=== PATIENT | female | born 1935 | race Two or more races ===

== ENCOUNTER 2017-08-28 11:56 | Inpatient (IN) | payer OTHER ==
[~2017-08-28] VITALS: Ht 149.9 cm; Wt 54.4 kg
[~2017-08-28 11:56] MED LIST: PREDNISONE5 MG/DOSE- PO; TRAMADOL HCL50 MG PO
[2017-09-25] MEDS ORDERED: CLOPIDOGREL BIS75 MG PO (09:10)
[2017-09-25] MEDS ORDERED: ISOSORBIDE DINI30 MG PO (09:11)
[2017-09-25] MEDS ORDERED: FOLIC ACID1 MG PO (09:11)
[2017-09-25] MEDS ORDERED: LISINOPRIL5 MG PO (09:11)
[2017-09-25] MEDS ORDERED: TENORMIN25 MG PO (09:12)
[2017-09-25] MEDS ORDERED: LASIX20 MG PO (09:12)
[2017-09-25] MEDS ORDERED: SYNTHROID75 MCG PO (09:12)
[2017-09-25] MEDS ORDERED: MILLIPRED DP5 M1 PO (09:13)
[2017-09-25] MEDS ORDERED: SIMVASTATIN40 MG PO (09:13)
[2017-09-25] MEDS ORDERED: DORZOLAMIDE HCL10 ML OP (09:13)
[2017-09-25] MEDS ORDERED: OMEPRAZOLE40 MG PO (09:14)
[2017-10-04] MEDS ORDERED: INTEGRA PLUS C1 EACH PO (06:32)
[2017-10-04] MEDS ORDERED: XARELTO10 MG PO (06:32)
[2017-10-04] MEDS ORDERED: OXYC1TAB9 PO (06:32)
== END 2017-10-04 14:45 | DRG 470 ==
LOC: SURG 09-25 07:00 → SURH 10-01 05:30 → O/R 10-01 05:30 → SURG 10-01 07:00 → SURH 10-01 13:28 → SURG 10-04 07:00 → SURH 10-04 14:45
PROVIDERS: Orthopaedic Surgery Sports Medicine
PROC: 0SRC0J9 Replacement of Right Knee Joint with Synthetic Substitute, Cemented, Open Approach (ICD-10-PCS; principal; 2017-10-01 16:30)
DX: M17.11 Unilateral primary osteoarthritis, right knee (principal); I82.491 Acute embolism and thrombosis of other specified deep vein of right lower extremity

== ENCOUNTER 2017-10-08 11:48 | Emergency (ER) | payer OTHER ==
[~2017-10-08] VITALS: Ht 149.9 cm; Wt 53.5 kg
[~2017-10-08 11:48] MED LIST changes: +CLOPIDOGREL BIS75 MG PO; +DORZOLAMIDE HCL10 ML OP; +FOLIC ACID1 MG PO; +INTEGRA PLUS C1 EACH PO; +ISOSORBIDE DINI30 MG PO; +LASIX20 MG PO; +LISINOPRIL5 MG PO; +MILLIPRED DP5 M1 PO; +OMEPRAZOLE40 MG PO; +OXYC1TAB9 PO; +SIMVASTATIN40 MG PO; +SYNTHROID75 MCG PO; +TENORMIN25 MG PO; +XARELTO10 MG PO
== END 2017-10-08 20:42 | disposition home or self-care (01) ==
LOC: ER 11:48
DX: R21 Rash and other nonspecific skin eruption (principal); T78.49XS Other allergy, sequela; X58.XXXS Exposure to other specified factors, sequela

== ENCOUNTER 2017-10-29 16:16 | Emergency (ER) | payer OTHER ==
[~2017-10-29] VITALS: Ht 152.4 cm; Wt 59.0 kg
== END 2017-10-29 23:29 | disposition home or self-care (01) ==
LOC: ER 16:16
DX: T81.4XXS Infection following a procedure, sequela (principal); L03.115 Cellulitis of right lower limb; Y83.8 Other surgical procedures as the cause of abnormal reaction of the patient, or of later complication, without mention of misadventure at the time of the procedure

== ENCOUNTER 2019-11-26 12:00 | Outpatient (CLI) | payer OTHER | END 2019-11-26 12:08 | disposition home or self-care (01) | LOC: RAD 12:00 | PROVIDERS: ATTEND Internal Medicine Pulmonary Disease | DX: R13.11 Dysphagia, oral phase (principal); R06.02 Shortness of breath ==

== ENCOUNTER 2019-11-27 10:10 | Outpatient (CLI) | payer OTHER | END 2019-11-27 10:14 | disposition home or self-care (01) | LOC: RX STUDY 10:10 | PROVIDERS: ATTEND Internal Medicine Pulmonary Disease | DX: R13.11 Dysphagia, oral phase (principal); R06.02 Shortness of breath ==

== ENCOUNTER 2021-04-13 07:40 | Outpatient (CLI) | payer OTHER | END 2021-04-13 07:42 | disposition home or self-care (01) | LOC: RX STUDY 07:40 | PROVIDERS: ATTEND Internal Medicine Gastroenterology | DX: R13.19 Other dysphagia (principal) ==

== ENCOUNTER 2024-02-16 18:58 | Emergency (ER) | payer OTHER ==
[~2024-02-16] VITALS: Ht 134.6 cm; Wt 59.0 kg
[2024-02-16] MEDS ORDERED: ARICEPT10 MG PO (19:29)
[2024-02-16] MEDS ORDERED: ROSUVASTATIN CA20 MG PO (19:29)
[2024-02-16] MEDS ORDERED: TRAZODONE HCL50 MG PO (19:29)
[2024-02-16] MEDS ORDERED: ATENOLOL25 MG (19:29)
[2024-02-16] MEDS ORDERED: NAMENDA XR14 MG PO (19:29)
[2024-02-16] MEDS ORDERED: ISOSORBIDE DINI30 MG PO (19:30)
[2024-02-16] MEDS ORDERED: LASIX20 MG PO (19:30)
[2024-02-16 20:06] LABS: HEMATOCRIT 31.7 % (36.0-45.00); MEAN CELL VOLUME 101.6 fL (80.00-100.00); MEAN CORPUSCULAR HEMOGLOBIN 35.1 pg (27.00-32.0); MEAN CORPUSCULAR HGB CONC 34.6 g/dl (32.0-36.0); RED BLOOD COUNT 3.12 M/uL (4.00-6.00); RED CELL DISTRIBUTION WIDTH 18.3 % (11.5-14.5)
[2024-02-16 20:12] LABS: PLATELET COUNT 85 K/uL (150-450)
[2024-02-16 20:24] LABS: PH,URINE 5.5 (5.0-8.0); URINE APPEARANCE Clear; URINE BILIRRUBIN Negative (NEGATIVE); URINE BLOOD Negative; URINE COLOR Yellow; URINE GLUCOSE Negative (NEGATIVE); URINE KETONE Negative (NEGATIVE); URINE LEUKOCYTE Negative; URINE NITRATE Negative; URINE PROTEIN Negative (NEGATIVE); URINE UROBILINOGEN 0.2 E.U./dl
[2024-02-16 20:28] LABS: URINE BACTERIA 36.4 uL (0.0-1933); URINE EPITHELIAL CELLS 13.5 uL (0.0-38.8)
[2024-02-16 20:36] LABS: URINE CAST 0.45 uL (0.0-1.40); URINE RBC 1.6 uL (0.0-20.8)
[2024-02-16 20:55] LABS: INR 1.04; PARTIAL THROMBOPLASTIN TIME 25.4 SECONDS (22.0-34.0); PROTHROMBIN TIME 11.3 SECONDS (9.0-11.5)
[2024-02-16 21:04] LABS: ALBUMIN 3.5 gm/dL (3.4-5.0); BILIRUBIN TOTAL 0.31 mg/dL (0.3-1.2); CALCIUM 8.5 mg/dL (8.5-10.1); CREATININE SERUM 1.03 mg/dL (0.55-1.02); GFR 50.57; GLOBULINA 2.9 G/DL (2.4-3.5); POTASSIUM 3.97 mEq/L (3.5-5.1); TOTAL PROTEIN 6.4 gm/dL (6.4-8.2)
== END 2024-02-17 00:16 | disposition home or self-care (01) ==
LOC: ER → AMB-ENDOS 23:22
PROVIDERS: General Practice
DX: R56.9 Unspecified convulsions (principal); I10 Essential (primary) hypertension; Z88.2 Allergy status to sulfonamides; Z88.6 Allergy status to analgesic agent